=== PATIENT | female | born 1995 ===

== ENCOUNTER 2024-08-22 13:54 | Inpatient (IN) | payer OTHER ==
[2024-08-22] MEDS ORDERED: hydrALAZINE 20 MG/ML VIAL SLOW IVP PRN ×2 (14:04→16:42)
[2024-08-22 14:16] VITALS: BMI 26.6
[2024-08-22 14:55] LABS: Creatinine, Urine 74.72 mg/dL (47-110)
[2024-08-22 15:19] LABS: #Basophils 0.02 10x3/uL (0.0-0.2); #Eosinophils 0.03 10x3/uL (0.0-0.5); #Monocytes 0.53 10x3/uL (0.0-1.1); #Neutrophils 5.67 10x3/uL (1.5-8.4); %Basophils 0.3 % (0.0-2.0); %Eosinophils 0.4 % (0.0-6.0); %Lymphocytes 14.9 % (18.0-47.0); %Monocytes 7.2 % (0.0-10.0); %Neutrophils 76.8 % (40.0-75.0); Hematocrit 34.7 % (34.9-44.5); Hemoglobin 11.9 g/dL (12.0-15.5); Mean Corpuscular HGB CONC 34.3 g/dL (32.0-36.0); Mean Corpuscular Hemoglobin 30.1 pg (27.0-33.0); Mean Corpuscular Volume 87.8 fL (81.6-98.3); Mean Platelet Volume 11.9 fL (7.4-10.4); Platelet Count 164 10x3/uL (150-450); RBC Distribution Width 13.1 % (11.5-14.5); Red Blood Cell (RBC) Count 3.95 10x6/uL (3.90-5.03); White Blood Cell (WBC) Count 7.4 10x3/uL (3.5-10.5)
[2024-08-22 15:34] LABS: ALT (SGPT) 29 U/L (8-55); AST (SGOT) 29 U/L (5-34); Alkaline Phosphatase 140 U/L (40-110); Anion Gap 11 mmol/L (10-20); BUN (Urea Nitrogen) 10 mg/dL (7.0-18.7); Bilirubin, Total 0.3 mg/dL (0.2-1.2); Calc. Creatinine Clearance 141 mL/min (70-130); Calcium 8.7 mg/dL (7.8-10.44); Carbon Dioxide 21 mmol/L (22-29); Chloride 107 mmol/L (98-107); Estimated GFR 121; Globulin 3.4 g/dL (2.4-3.5); Glucose 89 mg/dL (70-105); Potassium 3.8 mmol/L (3.5-5.1); Protein, Total 6.4 g/dL (6.0-8.3); Sodium 135 mmol/L (136-145)
[2024-08-22] MEDS ORDERED: Ondansetron PF 4 MG/2 ML Vial IVP PRN (16:42)
[2024-08-22] MEDS ORDERED: Lidocaine 1% (PF) 30 ML VIAL SC PRN (16:42)
[2024-08-22] MEDS ORDERED: Promethazine HCl 25 MG/ML VIAL IM PRN (16:42)
[2024-08-22] MEDS ORDERED: Diphenoxylate HCl/Atropine Tablet PO PRN (16:42)
[2024-08-22] MEDS ORDERED: Docusate 100 MG CAP PO PRN (16:42)
[2024-08-22] MEDS ORDERED: Carboprost 250 MCG/ML AMP IM PRN (16:42)
[2024-08-22] MEDS ORDERED: Tranexamic Acid 1,000 MG/10 ML VIAL IVP PRN (16:42)
[2024-08-22] MEDS ORDERED: fentaNYL 50 mcg/mL 1 mL Vial SLOW IVP PRN (16:42)
[2024-08-22] MEDS ORDERED: Misoprostol 200 MCG TAB PR PRN (16:42)
[2024-08-22] MEDS ORDERED: Misoprostol 100 MCG TAB VAG SCH (16:45)
[2024-08-22] MEDS ORDERED: Oxytocin 30 units/NS 500 ML 500 ML IV SCH (16:45)
[2024-08-22 17:50] LABS: HBsAg Index 0.19 S/CO (0-0.99); Hep B Surf Ag - L&D Non-Reactive S/CO (NonReactive); Syphilis Antibody Nonreactive (Nonreactive); Syphilis Antibody Index 0.03 S/CO (<1.00 Non-Reactive)
[2024-08-22 20:20] LABS: Uric Acid 3.1 mg/dL (2.6-6.0)
[2024-08-22] MEDS: Misoprostol 100 MCG TAB VAG SCH (22:21)
[2024-08-22] MEDS: Acetaminophen 500 MG TAB PO PRN (22:21)
[2024-08-22] MEDS: Lactated Ringer's 1,000 ML IV SCH (22:22)
[2024-08-23] MEDS: Oxytocin 30 units/NS 500 ML 500 ML IV SCH ×2 (02:40→17:30)
[2024-08-23] MEDS: Lactated Ringer's 1,000 ML IV SCH (02:40)
[2024-08-23] MEDS: fentaNYL/Ropivacaine Epidural 100 ML ONE (13:08)
[2024-08-23] MEDS ORDERED: Moisturizing Cream (Eucerin) 113 GM JAR TOP PRN (13:26)
[2024-08-23] MEDS ORDERED: Lactated Ringer's 500 ML IV PRN (13:26)
[2024-08-23] MEDS ORDERED: Naloxone HCl 0.4 mg/ml Vial IVP PRN ×2 (13:26)
[2024-08-23] MEDS ORDERED: Acetaminophen 325 MG TAB PO PRN (13:26)
[2024-08-23] MEDS ORDERED: ePHEDrine Sulfate 50 MG/10 ML VIAL SLOW IVP PRN (13:26)
[2024-08-23] MEDS ORDERED: Promethazine HCl 25 MG/ML VIAL IM PRN (13:26)
[2024-08-23] MEDS ORDERED: diphenhydrAMINE 50 MG/ML VIAL IVP PRN (13:26)
[2024-08-23] MEDS ORDERED: Ondansetron PF 4 MG/2 ML Vial IVP PRN ×2 (13:26→19:34)
[2024-08-23] MEDS ORDERED: fentaNYL 2 mcg/Ropivacaine 0.2% Epidural 100 ML CADD EPIDURAL SCH (13:30)
[2024-08-23] MEDS ORDERED: Communication Order-Pharmacy FS SCH (13:30)
[2024-08-23] MEDS: Ampicillin/Sulbactam 3 GM in Sodium Chloride 0.9% 100 ML IVPB SCH (18:23)
[2024-08-23] MEDS ORDERED: Oxytocin 30 units/NS 500 ML 500 ML IV SCH (19:34)
[2024-08-23] MEDS ORDERED: Boostrix 0.5 ML (Tdap) VIAL (>/=7 yrs of age) IM ONE (19:34)
[2024-08-23] MEDS ORDERED: Benzocaine-Menthol 82.5 ML CAN TOP PRN (19:34)
[2024-08-23] MEDS ORDERED: HYDROcodone/Acetaminophen 5/325 mg Tablet PO PRN (19:34)
[2024-08-23] MEDS ORDERED: Lanolin Ointment 7 GM TUBE TOP PRN (19:34)
[2024-08-23] MEDS ORDERED: Preparation H Ointment 28 GM TUBE PR PRN (19:34)
[2024-08-23] MEDS ORDERED: Misoprostol 200 MCG TAB VAG PRN (19:34)
[2024-08-23] MEDS ORDERED: hydrALAZINE 20 MG/ML VIAL SLOW IVP PRN (19:34)
[2024-08-23] MEDS ORDERED: Methylergonovine 0.2 MG/ML VIAL IM PRN (19:34)
[2024-08-23] MEDS ORDERED: diphenhydrAMINE 25 MG CAP PO PRN (19:34)
[2024-08-23] MEDS: Ibuprofen 800 MG TAB PO SCH (21:02)
[2024-08-23] MEDS: Docusate 100 MG CAP PO SCH (21:03)
[2024-08-24] MEDS: Bisacodyl 10 MG SUPP PR SCH (06:35)
[2024-08-24] MEDS: Milk Of Magnesia 30 ML UDCUP PO SCH (08:27)
[2024-08-24] MEDS: Prenatal Vitamin 1 TAB PO SCH (08:27)
[2024-08-24] MEDS: Ferrous Sulfate 325 MG TAB PO SCH (08:30)
[2024-08-24] MEDS ORDERED: Bisacodyl 10 MG SUPP PR PRN (10:38)
[2024-08-24] MEDS: Witch Hazel 100 PAD JAR TOP PRN (22:39)
[2024-08-25] MEDS: Polyethylene Glycol 3350 17 GM Packet PO SCH (08:08)
[2024-08-25 16:18] VITALS: BP 134/81; TEMP 98.2
== END 2024-08-25 15:25 | disposition home or self-care (01) | DRG 768 ==
LOC: CSHLD/OP 13:54 → CSHLD 16:43 → CSHPED 08-23 20:00
PROVIDERS: ADMIT Family Medicine; ATTEND Family Medicine
PROC: 10E0XZZ Delivery of Products of Conception, External Approach (ICD-10-PCS; principal; 2024-08-23)
PROC: 0DQR0ZZ Repair Anal Sphincter, Open Approach (ICD-10-PCS; 2024-08-23)
DX: O13.4 Gestational [pregnancy-induced] hypertension without significant proteinuria, complicating childbirth (principal); Z37.0 Single live birth; Z3A.39 39 weeks gestation of pregnancy; O99.344 Other mental disorders complicating childbirth; F41.9 Anxiety disorder, unspecified; O70.21 Third degree perineal laceration during delivery, IIIa; O99.02 Anemia complicating childbirth
CPT/HCPCS: 36415; 51702; 80053; 82570; 84156; 84550; 85025; 86780; 86850; 86900; 86901; 87340; 99285; J0295; J2590; J7120